=== PATIENT | male | born 1945 | race Caucasian/White ===

== ENCOUNTER 2016-11-20 11:03 | Emergency (ER) | payer MEDICAID ==
[~2016-11-20] VITALS: Ht 175.3 cm; Wt 83.0 kg
[2016-11-20 11:16] VITALS: Ht 175.3 cm; Wt 83.0 kg
[2016-11-20] MEDS ORDERED: ACETAMINOPHEN 325 MG TAB PO ONE (14:00)
--- NOTE | 2016-11-20 14:19 | RADRPT ---
PROCEDURE: XR Chest. CLINICAL INDICATION: Cough. TECHNIQUE: Single frontal view. COMPARISON: None. FINDINGS: The lungs are clear. The heart size is normal. There is calcification in the aorta consistent with atherosclerosis. There is no pleural effusion. There is bilateral apical pleural thickening. There is no pneumothorax. IMPRESSION: 1. Atherosclerosis. 2. Clear lungs. 3. Bilateral apical pleural thickening. RPTAT: QQ .Ashkan Martinez MD, MD Date Time Electronically viewed and signed by .Ashkan Martinez MD, on 11/20/2016 14:19 .R/
[2016-11-20] MEDS ORDERED: OSLT75C PO (14:35)
[2016-11-20] MEDS ORDERED: ACET500C5 PO (14:35)
[2016-11-20] MEDS ORDERED: UDROBDM PO (14:35)
--- NOTE | 2016-11-20 14:37 | ERD ---
ER Documentation Chief Complaint Date/Time DATE: 11/20/16 TIME: 14:36 Chief Complaint COUGH,FEVER,SORE THROAT "MY LUNGS HURT" HPI 71-year-old male complains of cough fever and sore throat for last 3 days. He also has pleuritic pain in the anterior chest but not at rest. He denies significant sputum. Denies vomiting, abdominal pain. Patient is concerned because he has a history of pneumonia. ROS All systems reviewed and are negative except as per history of present illness. Medications Home Meds Active Scripts Oseltamivir Phosphate* (Tamiflu*) 75 Mg Capsule, 75 MG PO BID for 5 Days, CAP Prov:CANDIS MOY MD 11/20/16 Guaifenesin-Dextromethorphan* (Robitussin* DM) 100MG/10MG/5ML Syrup, 5 ML PO Q4H Y for QID for 4 Days, ML 4 ounces Prov:CANDIS MOY MD 11/20/16 Acetaminophen* (Tylophen*) 500 Mg Capsule, 1 CAP PO Q6H Y for PAIN AND OR ELEVATED TEMP, #15 CAP Prov:CANDIS MOY MD 11/20/16 Allergies Allergies: Coded Allergies: No Known Allergy (Unverified , 11/20/16) PMhx/Soc Medical and Surgical Hx: pt denies Medical Hx History of Surgery: Yes (HERNIA REPAIR) Hx Alcohol Use: No Hx Substance Use: No Hx Tobacco Use: No Smoking Status: Never smoker Physical Exam Vitals Vital Signs Date Time Temp Pulse Resp B/P Pulse Ox O2 Delivery O2 Flow Rate FiO2 11/20/16 11:16 98.5 68 18 164/77 98 Physical Exam Const: [] Alert, [id number] per Head: Atraumatic Eyes: Normal Conjunctiva ENT: Normal External Ears, Nose and Mouth. Neck: Full range of motion..~ No meningismus. Resp: Clear to auscultation bilaterally Cardio: Regular rate and rhythm, no murmurs Abd: Soft, non tender, non distended. Normal bowel sounds Skin: No petechiae or rashes Back: No midline or flank tenderness Ext: No cyanosis, or edema Neur: Awake and alert Psych: Normal Mood and Affect Results 24 hrs Current Medications Medications (Trade) Dose Ordered Sig/Roland Route PRN Reason Start Time Stop Time Status Last Admin Dose Admin Acetaminophen (Tylenol Tab) 650 mg ONCE ONCE PO 11/20/16 14:00 11/20/16 14:01 DC 11/20/16 13:51 Procedures/MDM Chest X-ray 1V Interpreted by me: Soft Tissue: No acute abnormalities Bones: No acute abnormalities Mediastinum/Cardiac Silhouette/Lungs: [No acute abnormalities]. Impression- no acute findings on 1 view chest x-ray Patient presents with URI symptoms with no evidence of pneumonia, hypoxemia, respiratory distress. He will be treated empirically for influenza with Tamiflu , Robitussin and Tylenol. The patient was stable with no new complaints during the ER course. Clinically, there is no current evidence to suggest meningitis, sepsis, acute abdomen, pneumonia, acute coronary syndrome, pulmonary embolism, or any other emergent condition appearing to require further evaluation or hospitalization. The patient should certainly return for any new or worsening symptoms per the aftercare instructions. They should otherwise follow-up with her primary care doctor for reevaluation this week. Departure Diagnosis: Primary Impression: Upper respiratory infection URI type: unspecified URI Qualified Code: J06.9 - Upper respiratory tract infection, unspecified type Condition: Stable Patient Instructions: Uri, Viral, No Abx (Adult) Additional Instructions: X-ray read as no acute findings. We will treat for influenza. Recheck for new or worsening symptoms with primary care doctor. CANDIS MOY MD Nov 20, 2016 14:37
[2016-11-20 15:30] VITALS: BP 150/70; PULSE 89; RESP 20; TEMP 98.7
== END 2016-11-20 15:40 | disposition home or self-care (01) ==
LOC: FTE 11:03
DX: J06.9 Acute upper respiratory infection, unspecified (principal)
CPT/HCPCS: 71010; Z7502; Z7610

== ENCOUNTER 2017-01-22 12:06 | Emergency (ER) | payer MEDICAID, OTHER ==
[~2017-01-22] VITALS: Wt 80.0 kg
[~2017-01-22 12:06] MED LIST: ACET500C5 PO; OSLT75C PO; UDROBDM PO
[2017-01-22] MEDS ORDERED: ALBUTEROL 0.083% (NEB) 2.5 MG/3 ML AMP NEB STA (13:27)
--- NOTE | 2017-01-22 15:13 | RADRPT ---
PROCEDURE: XR Chest. CLINICAL INDICATION: Chest pain/shortness of breath TECHNIQUE: Chest PA COMPARISON: 11/20/2016 FINDINGS: The mediastinal structures are unremarkable. There is calcification of the thoracic aorta (consiste nt with atherosclerosis). The heart is normal in size and configuration. The pulmonary vascularity is normal. There are normal lung volumes. There is mild bibasilar subsegmental atelectasis. No c onsolidation is identified. The pleural spaces are unremarkable. The osseous structures are unrema rkable. IMPRESSION: Calcification of the thoracic aorta (consistent with atherosclerosis). Mild bibasilar subsegmental atelectasis No consolidation identified RPTAT: HGDB .Braden Anderson MD, MD Date Time Electronically viewed and signed by .Braden Anderson MD, MD on 01/22/2017 15:12 .B/
[2017-01-22] MEDS ORDERED: ACETAMINOPHEN 325 MG TAB PO STA (15:18)
[2017-01-22] MEDS ORDERED: AZIT250T94 PO (15:38)
[2017-01-22] MEDS ORDERED: ALBU8.5H3 INH (15:38)
[2017-01-22] MEDS ORDERED: ACET325T33 PO (15:38)
--- NOTE | 2017-01-22 15:50 | ERD ---
ER Documentation Chief Complaint Date/Time DATE: 01/22/17 TIME: 15:49 Chief Complaint COUGH/CONGESTION/HEADACHE [id number] HPI This is a 71-year-old male presenting to the emergency department with no medical problems stating that he he has cough, congestion, headache and mild shortness of breath for the past 2 weeks. He states that he has no chest pain and no history of asthma. Patient states that he took Tylenol yesterday without any relief. He rates his mild to moderate in severity ROS All systems reviewed and are negative except as per history of present illness. Medications Home Meds Active Scripts Acetaminophen* (Tylenol*) 325 Mg Tablet, 2 TAB PO Q6 Y for PAIN AND OR ELEVATED TEMP, #20 TAB Prov:MARY KAY HAND PA-C 01/22/17 Albuterol Sulfate* (Proair HFA*) 8.5 Gm Hfa.aer.ad, 2 PUFF INH Q4H Y for WHEEZING AND SOB, #1 INHALER Prov:MARY KAY HAND PA-C 01/22/17 Azithromycin* (Zithromax*) 250 Mg Tablet, 250 MG PO .ZPACK DIRECTED, #6 TAB TAKE 500 MG (2 TABS) THE FIRST DAY THEN 250 MG (1 TAB) DAYS 2-5 Prov:MARY KAY HAND PA-C 01/22/17 Oseltamivir Phosphate* (Tamiflu*) 75 Mg Capsule, 75 MG PO BID for 5 Days, CAP Prov:CANDIS MOY MD 11/20/16 Guaifenesin-Dextromethorphan* (Robitussin* DM) 100MG/10MG/5ML Syrup, 5 ML PO Q4H Y for QID for 4 Days, ML 4 ounces Prov:CANDIS MOY MD 11/20/16 Acetaminophen* (Tylophen*) 500 Mg Capsule, 1 CAP PO Q6H Y for PAIN AND OR ELEVATED TEMP, #15 CAP Prov:CANDIS MOY MD 11/20/16 Allergies Allergies: Coded Allergies: No Known Allergy (Unverified , 11/20/16) PMhx/Soc History of Surgery: Yes (HERNIA REPAIR) Hx Alcohol Use: No Hx Substance Use: No Hx Tobacco Use: No Physical Exam Vitals Vital Signs Date Time Temp Pulse Resp B/P Pulse Ox O2 Delivery O2 Flow Rate FiO2 01/22/17 13:53 86 25 95 21 01/22/17 12:16 99.6 86 25 147/81 95 Physical Exam GENERAL: well-developed/well-nourished, in no apparent distress, non-toxic appearing HEAD: NC/AT, no swelling noted in frontal or maxillary areas EARS: bilateral tympanic membrane is intact without erythema or effusion NARES: congested THROAT: oropharynx non-erythematous without exudates, no tonsil enlargement, post nasal drip EYES: Conjunctiva normal NECK: Supple, no lymphadenopathy PULM: Mild coarse breath sounds bilaterally CV: Normal S1S2, RRR, good capillary refill GI: Soft, non-distended, normal bowel sounds, non-tender BACK: No midline tenderness, no masses EXT No clubbing, cyanosis, or edema NEURO: Alert and Orientated SKIN: Intact, normal turgor PSYCH: Normal mood and mentation Results 24 hrs Current Medications Medications (Trade) Dose Ordered Sig/Roland Route PRN Reason Start Time Stop Time Status Last Admin Dose Admin Albuterol (Proventil 0.083% (Neb)) 5 mg ONCE STAT NEB 01/22/17 13:27 01/22/17 13:30 DC 01/22/17 13:52 Acetaminophen (Tylenol Tab) 650 mg ONCE STAT PO 01/22/17 15:18 01/22/17 15:20 DC 01/22/17 15:24 Procedures/MDM This is a 71-year-old male presenting to the emergency room with symptoms most consistent with a bronchitis which likely can be viral versus bacterial therefore patient will be empirically treated with Z-Aydin as an outpatient. There is no evidence of respiratory distress, pneumonia or pleural effusion. RT was consulted, patient was given a breathing treatment and he states that he significant feels better. Patient was given Tylenol for pain. Chest x-ray done in the ED and radiologist stated Calcification of the thoracic aorta (consistent with atherosclerosis). Mild bibasilar subsegmental atelectasis No consolidation identified Patient is hematuria stable for discharge for home with prescriptions for Z-Aydin , Tylenol and pro-air. Discussed for him to follow-up with his primary care physician tomorrow for further evaluation management. Discussed return to the ER for any worsening sinus symptoms. He understands and agrees with plan Departure Diagnosis: Primary Impression: URI (upper respiratory infection) Condition: Stable Patient Instructions: Preventing Common Respiratory Infections, Bronchitis With Wheezing (Adult) Additional Instructions: Visite a nathan mdsergo [facility] para un EXAMEN.Regrese a estas instalaciones si no se mejora steph esperbamos o steph le dijimos. Ola toda la medicina [place] y steph se le indic. Regrese a estas instalaciones si no se mejora steph esperbamos o steph le dijimos. MARY KAY HAND PA-C January 22, 2017 15:50
== END 2017-01-22 15:46 | disposition home or self-care (01) ==
LOC: FTE 12:06
DX: J06.9 Acute upper respiratory infection, unspecified (principal)
CPT/HCPCS: 71010; 94664; Z7502; Z7610

== ENCOUNTER 2017-05-01 11:20 | Emergency (ER) | payer OTHER ==
[~2017-05-01] VITALS: Ht 175.3 cm; Wt 81.5 kg
[~2017-05-01 11:20] MED LIST changes: +ACET325T33 PO; +ALBU8.5H3 INH; +AZIT250T94 PO
[2017-05-01 11:25] VITALS: Ht 175.3 cm; Wt 81.5 kg
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
[2017-05-01] MEDS ORDERED: IBUPROFEN 800 MG TAB PO ONE (12:30)
--- NOTE | 2017-05-01 12:59 | RADRPT ---
PROCEDURE: XR Chest 1 View. CLINICAL INDICATION: Chest pain and trauma. TECHNIQUE: AP view of the chest was obtained. COMPARISON: January 22, 2017 FINDINGS: The heart size is within normal limits. Calcified atherosclerosis is noted in the aorta. The lungs are hyperexpanded. Chronic mild interstitial prominence is seen in both lungs. Blunting of the rig ht costophrenic angle is observed. No consolidations are identified. No pneumothorax is seen. Osse ous structures are intact. IMPRESSION: Calcified atherosclerosis in the aorta. No visualized traumatic injury. Hyperexpanded lungs with chronic mild interstitial prominence in both lungs. Findings could reflect COPD. Blunting of the right costophrenic angle that may reflect small pleural effusion. If there is high clinical suspicion for traumatic injury, further evaluation with CT should be consi dered. RPTAT: AA .Lai Borrero MD, Date Time Electronically viewed and signed by .Lai Borrero MD, MD on 05/01/2017 12:59 .P/
--- NOTE | 2017-05-01 13:48 | RADRPT ---
PROCEDURE: XR Ribs. CLINICAL INDICATION: Pain TECHNIQUE: Multiple oblique views of the right ribs were obtained. The images were reviewed on a PACS workstation. COMPARISON: Chest x-ray from the same day FINDINGS: There is no evidence for a rib fracture. The underlying lung parenchyma is intact without evidence f or pneumothorax. There is a trace right pleural effusion. IMPRESSION: No acute rib fracture identified. Trace right pleural effusion. RPTAT: EE .Marge Looney MD, Date Time Electronically viewed and signed by .Marge Looney MD, on 05/01/2017 13:47 .F/
--- NOTE | 2017-05-01 14:44 | RADRPT ---
PROCEDURE: CT Chest without contrast. CLINICAL INDICATION: Trauma, pain TECHNIQUE: CT of the chest was performed on a multi-detector scanner without IV contrast. Coronal and sagittal images were reformatted from the axial data set. One or more of the following dose re duction techniques were used: automated exposure control, adjustment of the mA and/or kV according t o patient size, use of iterative reconstruction technique. CTDI = 11.62 mGy. DLP = 454.39 mGy-cm. COMPARISON: Chest x-ray, 05/01/2017 FINDINGS: There is trace low density right pleural fluid. Mild bibasilar atelectasis is noted. No acute infi ltrate, pulmonary edema or pneumothorax is identified. The central tracheobronchial tree is clear. No pulmonary nodule or mass is identified. The heart size is normal without significant pericardial fluid. Coronary arterial and aortic athero sclerotic calcifications are present. There is no thoracic aortic aneurysm. No mediastinal, hilar, axillary or supraclavicular lymphadenopathy is identified. Liver and kidneys demonstrate benign cysts. Visualized portions of the upper abdomen are otherwise grossly unremarkable. The surrounding osseous structures are remarkable for degenerative enthesopat hy of the spine. No acute fracture or dislocation is identified. No focal osseous lesion is seen. IMPRESSION: 1. Nonspecific trace low density right pleural fluid. Mild bibasilar atelectasis. 2. Coronary arterial and aortic atherosclerotic calcifications. 3. No mass, lymphadenopathy, or focal acute infiltrate. 4. No evidence of acute traumatic injury. RPTAT: HDWR .Sharad Khanna MD, Date Time Electronically viewed and signed by .Sharad Khanna MD, MD on 05/01/2017 14:43 .R/
[2017-05-01] MEDS ORDERED: HYDR-906 PO (14:55)
[2017-05-01] MEDS ORDERED: NAPR-260 PO (14:55)
[2017-05-01 15:07] VITALS: BP 148/67; PULSE 73; RESP 18
== END 2017-05-01 15:08 | disposition home or self-care (01) ==
LOC: FTE 11:20
DX: S20.211A Contusion of right front wall of thorax, initial encounter (principal); W01.0XXA Fall on same level from slipping, tripping and stumbling without subsequent striking against object, initial encounter; Y92.410 Unspecified street and highway as the place of occurrence of the external cause
CPT/HCPCS: 71010; 71100; 71250; Z7502; Z7610

== ENCOUNTER 2018-12-28 06:22 | Emergency (ER) | payer SELFPAY ==
[~2018-12-28] VITALS: Ht 185.4 cm; Wt 80.1 kg
[~2018-12-28 06:22] MED LIST changes: -ALBU8.5H3 INH; +ALBU8.5H8 INH; +AZIT250T PO; -AZIT250T94 PO; +GUAI5SYR2 PO; +HYDR-4011 PO; +NAPR-985 PO; +OSEL75CA23 PO; -OSLT75C PO; -UDROBDM PO
[2018-12-28 06:27] VITALS: Ht 185.4 cm; Wt 80.1 kg
[2018-12-28] MEDS ORDERED: ONDANSETRON 4 MG INJ IV STA (07:01)
[2018-12-28] MEDS ORDERED: SOD CHLORIDE 0.9% 500 ML IV STA (07:01)
[2018-12-28] MEDS ORDERED: morphine 4 MG/ML VIAL IV STA (07:01)
--- NOTE | 2018-12-28 08:07 | ERD ---
ER Documentation Chief Complaint Chief Complaint pt has ap pressure and flank pain x 1 day 01/07 HPI 73-year-old man complains of suprapubic abdominal pain, urine retention, right flank pain beginning last night after eating salad. He suspects he has food poisoning and states he has had retention many years ago. He has had some na usea and diarrhea a few times since last night but denies vomiting, no blood per rectum or melena, no hematuria, no complaints of chest pain or shortness of breath. Patient has history of hernia surgery. He has had no fevers or chills, no complaints of paresis or paresthesias ROS All systems reviewed and are negative except as per history of present illness. Medications Home Meds Active Scripts Ibuprofen* (Motrin*) 600 Mg Tab, 600 MG PO Q8 PRN for PAIN AND/OR INFLAMMATION, #30 TAB Prov:PATRICIA FARIAS MD 12/28/18 Polyethylene Glycol* (Miralax*) 17 Gm Powd.pack, 17 GM PO DAILY, #7 Prov:PATRICIA FARIAS MD 12/28/18 Naproxen* (Naprosyn*) 500 Mg Tablet, 500 MG PO BID PRN for PAIN AND/OR INFLAM MATION, #30 TAB Prov:RAE SPENCER PA-C 05/01/17 Hydrocodone/Acetaminophen (Vista 5-325 Tablet) 1 Each Tablet, 1 TAB PO Q6H PRN for PAIN, #7 TAB Prov:RAE SPENCER PA-C 05/01/17 Acetaminophen* (Tylenol*) 325 Mg Tablet, 2 TAB PO Q6 PRN for PAIN AND OR ELEVATED TEMP, #20 TAB Prov:MARY KAY HAND PA-C 01/22/17 Albuterol Sulfate* (Proair HFA*) 8.5 Gm Hfa.aer.ad, 2 PUFF INH Q4H PRN for WHEEZING AND SOB, #1 INHALER Prov:MARY KAY HAND PA-C 01/22/17 Azithromycin* (Zithromax*) 250 Mg Tablet, 250 MG PO .PiercePACK DIRECTED, #6 TAB TAKE 500 MG (2 TABS) THE FIRST DAY THEN 250 MG (1 TAB) DAYS 2-5 Prov:MARY KAY HAND PA-C 01/22/17 Oseltamivir Phosphate* (Tamiflu*) 75 Mg Capsule, 75 MG PO BID for 5 Days, CAP Prov:CANDIS MOY MD 11/20/16 Guaifenesin-Dextromethorphan* (Robitussin* DM) 100MG/10MG/5ML Syrup, 5 ML PO Q4H PRN for QID for 4 Days, ML 4 ounces Prov:CANDIS MOY MD 11/20/16 Acetaminophen* (Tylophen*) 500 Mg Capsule, 1 CAP PO Q6H PRN for PAIN AND OR ELEVATED TEMP, #15 CAP Prov:CANDIS MOY MD 11/20/16 Allergies Allergies: Coded Allergies: No Known Allergy (Unverified , 12/28/18) PMhx/Soc Hernia surgery, hypertension History of Surgery: Yes (HERNIA REPAIR) Hx Alcohol Use: No Hx Substance Use: No Hx Tobacco Use: No Smoking Status: Former smoker FmHx Family History: No diabetes Physical Exam Vitals Vital Signs Date Temp Pulse Resp B/P (MAP) Pulse Ox O2 O2 Flow FiO2 Time Delivery Rate 12/28/18 62 17 129/65 99 Room Air 09:17 (86) 12/28/18 99.1 73 18 192/88 96 06:27 (122) Physical Exam Const: No acute distress, afebrile Resp: Clear to auscultation bilaterally Cardio: Regular rate and rhythm, no murmurs Abd: Soft, non tender, mild suprapubic tenderness and distention, no rigidity or masses, no guarding Skin: No petechiae or rashes Back: No midline or flank tenderness Ext: No cyanosis, or edema Neur: Awake and alert x3, no focal deficits or facial asymmetry, moving all extremities Psych: Normal Mood and Affect Result Diagram: 12/28/18 0725 12/28/18 0725 Results 24 hrs Laboratory Tests Test 12/28/18 07:13 12/28/18 07:25 Urine Color STRAW Urine Clarity CLEAR Urine pH 6.0 Urine Specific [place] 1.006 Urine Ketones NEGATIVE mg/dL Urine Nitrite NEGATIVE mg/dL Urine Bilirubin NEGATIVE mg/dL Urine Urobilinogen NEGATIVE mg/dL Urine Leukocyte Esterase NEGATIVE Bruno/ul Urine Microscopic RBC 2 /HPF Urine Microscopic WBC 0 /HPF Urine Hemoglobin 1+ mg/dL Urine Glucose NEGATIVE mg/dL Urine Total Protein NEGATIVE mg/dl White Blood Count 11.3 10^3/ul Red Blood Count 5.36 10^6/ul Hemoglobin 16.3 g/dl Hematocrit 48.9 % Mean Corpuscular Volume 91.2 fl Mean Corpuscular Hemoglobin 30.4 pg Mean Corpuscular Hemoglobin Concent 33.3 g/dl Red Cell Distribution Width 14.1 % Platelet Count 177 10^3/UL Mean Platelet Volume 10.3 fl Immature Granulocytes % 0.600 % Neutrophils % 83.9 % Lymphocytes % 6.2 % Monocytes % 9.0 % Eosinophils % 0.1 % Basophils % 0.2 % Nucleated Red Blood Cells % 0.0 /100WBC Immature Granulocytes # 0.070 10^3/ul Neutrophils # 9.5 10^3/ul Lymphocytes # 0.7 10^3/ul Monocytes # 1.0 10^3/ul Eosinophils # 0.0 10^3/ul Basophils # 0.0 10^3/ul Nucleated Red Blood Cells # 0.0 10^3/ul Prothrombin Time 12.1 Sec Prothrombin Time Ratio 0.9 INR International Normalized Ratio 0.89 Activated Partial Thromboplast Time 30.8 Sec Sodium Level 142 mmol/L Potassium Level 4.4 mmol/L Chloride Level 109 mmol/L Carbon Dioxide Level 25 mmol/L Anion Gap 8 Blood Urea Nitrogen 19 mg/dl Creatinine 1.10 mg/dl Est Glomerular Filtrat Rate mL/min mL/min Glucose Level 117 mg/dl Calcium Level 9.6 mg/dl Total Bilirubin 0.6 mg/dl Direct Bilirubin 0.00 mg/dl Indirect Bilirubin 0.6 mg/dl Aspartate Amino Transf (AST/SGOT) 20 IU/L Alanine Aminotransferase (ALT/SGPT) 25 IU/L Alkaline Phosphatase 80 IU/L Total Protein 7.0 g/dl Albumin 4.0 g/dl Globulin 3.00 g/dl Albumin/Globulin Ratio 1.33 Lipase 112 U/L Current Medications Medications Dose Sig/Roland Start Time Status Last (Trade) Ordered Route PRN Stop Time Admin Dose Reason Admin Sodium 500 ml @ Q1H STAT 12/28/18 DC 12/28/18 Chloride 500 mls/hr IV 07:01 07:31 12/28/18 08:00 Morphine 4 mg ONCE STAT 12/28/18 DC 12/28/18 Sulfate IV 07:01 07:30 (morphine) 12/28/18 07:02 Ondansetron 4 mg ONCE STAT 12/28/18 DC 12/28/18 HCl (Zofran IV 07: 07:30 Inj) 12/28/18 07:02 Procedures/[facility] IV line was established patient was placed on nuclear monitoring technician rhythm strip revealed a sinus rhythm at about 80 bpm with upright P and T waves. Patient was afebrile A Fields catheter was placed and patient suprapubic distention and pain resolved completely, about 900 cc clear urine output was obtained. I administered 500 cc normal saline IV, morphine 4 mg IV and Zofran 4 mg IV. CBC and electrolytes are normal, liver function tests are normal, urinalysis negative for infection CT scan of the abdomen and pelvis was performed, IMPRESSION: 1. Colonic diverticulosis most prevalent in the descending and especially sigmoid colon without CT evidence of diverticulitis. 2. No calcified urinary calculi or obstructive uropathy. Large pedunculated 5 cm superior lateral left renal cyst. 2 mm cortical inferior medial left renal nephrolith. 3. Continuous multiple cysts of the liver overall dimension 4.5 cm. 4. 1 cm pancreatic tail cyst consistent with a pseudocyst. No other pancreatic lesions. 5. Severely enlarged prostate gland. Correlation with PSA levels may be helpful. 6. Tiny fat containing umbilical hernia without herniated hour strangulation. Differential diagnoses considered, included but not limited to acute coronary syndrome, pulmonary embolism, aortic dissection, abdominal aortic aneurysm, sepsis, stroke, meningitis, encephalitis, pneumonia, appendicitis, ch olecystitis, bowel obstruction, pyelonephritis, nephrolithiasis, cystitis, as well as metabolic, hematologic, and electrolyte abnormalities. As well as abscess, cellulitis, fractures, and dislocations. Patient feels much better at this time, and vital signs are normal, symptoms have improved. I did give strict instructions to return to the ED if symptoms continue or worsen, patient will otherwise follow-up with primary care physician. Patient understood instructions and agreed to plan. Disclaimer: Inadvertent spelling and grammatical errors are likely due to EHR/dictation software use and do not reflect on the overall quality of patient care. Also, please note that the electronic time recorded on this note does not necessarily reflect the actual time of the patient encounter. Departure Diagnosis: Primary Impression: Urinary retention Additional Impression: Abdominal pain Abdominal location: lower abdomen, unspecified Qualified Codes: R10.30 - Lower abdominal pain, unspecified Condition: Good PATRICIA FARIAS MD Dec 28, 2018 08:07
[2018-12-28 09:17] VITALS: BP 129/65; PULSE 62; RESP 17
[2018-12-28] MEDS ORDERED: IBUP-1542 PO (09:27)
[2018-12-28] MEDS ORDERED: POLY17PO6 PO (09:27)
[2018-12-29] MEDS ORDERED: POLY17PO6 PO (11:28)
[2018-12-29] MEDS ORDERED: GLYC1SUP92 PR (11:28)
[2018-12-29] MEDS ORDERED: DOCU-144 PO (11:28)
[2018-12-29] MEDS ORDERED: TAMS-14 PO (11:31)
== END 2018-12-28 10:23 | disposition home or self-care (01) ==
LOC: E/R 06:22
DX: R33.9 Retention of urine, unspecified (principal); R10.30 Lower abdominal pain, unspecified; I10 Essential (primary) hypertension; Z87.891 Personal history of nicotine dependence
CPT/HCPCS: 36415; 51702; 74176; 80053; 81001; 83690; 85025; 85610; 85730; 87086; 96374; 96375; 99285; J2270; J2405; J7040

== ENCOUNTER 2018-12-29 09:18 | Emergency (ER) | payer SELFPAY ==
[~2018-12-29] VITALS: Ht 182.9 cm; Wt 79.4 kg
[~2018-12-29 09:18] MED LIST changes: +IBUP-1542 PO; +POLY17PO6 PO
[2018-12-29 09:20] VITALS: RESP 18; Ht 182.9 cm; Wt 79.4 kg
[2018-12-29 11:27] VITALS: BP 136/80; PULSE 63
[2018-12-29] MEDS ORDERED: POLY17PO6 PO (11:28)
[2018-12-29] MEDS ORDERED: GLYC1SUP92 PR (11:28)
[2018-12-29] MEDS ORDERED: DOCU-144 PO (11:28)
[2018-12-29] MEDS ORDERED: IBUPROFEN 800 MG TAB PO ONE (11:30)
[2018-12-29] MEDS ORDERED: TAMS-14 PO (11:31)
--- NOTE | 2018-12-29 14:15 | ERD ---
ER Documentation Chief Complaint Chief Complaint urine retention x yesterday HPI 73-year-old male presenting with urinary retention. Patient states that he has been unable to urinate since yesterday. He denies any fevers. Denies abdominal pain. Has a history of enlarged prostate. Denies other medical problems. NKDA. Surgical history denies. Social history denies ROS All systems reviewed and are negative except as per history of present illness. Medications Home Meds Active Scripts Tamsulosin Hcl* (Flomax*) 0.4 Mg Cap.er.24h, 0.4 MG PO QPM, #30 CAP Prov:EMMANUEL HER PA-C 12/29/18 Polyethylene Glycol* (Miralax*) 17 Gm Powd.pack, 17 GM PO DAILY, #7 Prov:EMMANUEL HER PA-C 12/29/18 Glycerin* (Glycerin (Adult)*) 1 Each Supp.rect, [address] DAILY PRN for CONSTIPATION, #30 SUPP.RECT Prov:EMMANUEL HER PA-C 12/29/18 Docusate Sodium* (Colace*) 100 Mg Capsule, 100 MG PO TID, #30 CAP Prov:EMMANUEL HER PA-C 12/29/18 Ibuprofen* (Motrin*) 600 Mg Tab, 600 MG PO Q8 PRN for PAIN AND/OR INFLAMMATION, #30 TAB Prov:PATRICIA FARIAS MD 12/28/18 Polyethylene Glycol* (Miralax*) 17 Gm Powd.pack, 17 GM PO DAILY, #7 Prov:PATRICIA FARIAS MD 12/28/18 Naproxen* (Naprosyn*) 500 Mg Tablet, 500 MG PO BID PRN for PAIN AND/OR INFLAMMATION, #30 TAB Prov:RAE SPENCER PA-C 05/01/17 Hydrocodone/Acetaminophen ([place] 5-325 Tablet) 1 Each Tablet, 1 TAB PO Q6H PRN for PAIN, #7 TAB Prov:RAE SPENCER PA-C 05/01/17 Acetaminophen* (Tylenol*) 325 Mg Tablet, 2 TAB PO Q6 PRN for PAIN AND OR ELEVATED TEMP, #20 TAB Prov:MARY KAY HAND PA-C 01/22/17 Albuterol Sulfate* (Proair HFA*) 8.5 Gm Hfa.aer.ad, 2 PUFF INH Q4H PRN for WHEEZING AND SOB, #1 INHALER Prov:MARY KAY HAND PA-C 01/22/17 Azithromycin* (Zithromax*) 250 Mg Tablet, 250 MG PO .ZPACK DIRECTED, #6 TAB TAKE 500 MG (2 TABS) THE FIRST DAY THEN 250 MG (1 TAB) DAYS 2-5 Prov:MARY KAY HAND PA-C 01/22/17 Oseltamivir Phosphate* (Tamiflu*) 75 Mg Capsule, 75 MG PO BID for 5 Days, CAP Prov:CANDIS MOY MD 11/20/16 Guaifenesin-Dextromethorphan* (Robitussin* DM) 100MG/10MG/5ML Syrup, 5 ML PO Q4H PRN for QID for 4 Days, ML 4 ounces Prov:CANDIS MOY MD 11/20/16 Acetaminophen* (Tylophen*) 500 Mg Capsule, 1 CAP PO Q6H PRN for PAIN AND OR ELEVATED TEMP, #15 CAP Prov:CANDIS MOY MD 11/20/16 Allergies Allergies: Coded Allergies: No Known Allergy (Unverified , 12/28/18) PMhx/Soc History of Surgery: Yes (HERNIA REPAIR) Anesthesia Reaction: No Hx Neurological Disorder: No Hx Respiratory Disorders: No Hx Cardiac Disorders: No Hx Psychiatric Problems: No Hx Miscellaneous Medical Probl: Yes (BPH) Hx Alcohol Use: No Hx Substance Use: No Hx Tobacco Use: No Smoking Status: Never smoker FmHx Family History: No diabetes, No coronary disease, No other Physical Exam Vitals Vital Signs Date Temp Pulse Resp B/P (MAP) Pulse Ox O2 O2 Flow FiO2 Time Delivery Rate 12/29/18 63 136/80 11:27 (98) 12/29/18 99.1 09:43 12/29/18 97.8 95 18 167/93 97 09:20 (117) Physical Exam GENERAL: The patient is well-appearing, well-nourished, in no acute distress HEENT: Atraumatic. Conjunctivae are pink. Pupils equal, round, and reactive to light. There is no scleral icterus. Tympanic membranes clear bilaterally. Oropharynx clear. CHEST: Clear to auscultation bilaterally. There are no rales, wheezes or rhonchi. HEART: Regular rate and rhythm. No murmurs, clicks, rubs or gallops. No S3 or S4. ABDOMEN: Mild distention. Normal active bowel sounds. No tenderness to palpation. BACK: No midline or flank tenderness. Results 24 hrs Laboratory Tests Test 12/29/18 11:10 Bedside Urine pH (LAB) 5.5 Bedside Urine Protein (LAB) Negative Bedside Urine Glucose (UA) Negative Bedside Urine Ketones (LAB) Negative Bedside Urine Blood 2+ Bedside Urine Nitrite (LAB) Negative Bedside Urine Leukocyte Esterase (L Negative Current Medications Medications Dose Sig/Roland Start Time Status Last (Trade) Ordered Route PRN Stop Time Admin Dose Reason Admin Ibuprofen 800 mg ONCE ONCE 12/29/18 DC 12/29/18 (Motrin) PO 11:30 12/29/18 11:26 11:31 Procedures/MDM ER course: Fields catheter placed in ED. Urinalysis negative. Urine sent for culture. MDM: 73-year-old male presenting with urinary retention. Patient was able to alleviate urine in the ER. Patient was sent home with urinary bag and recommended to follow-up with urologist. Patient is discharged with strict ER precautions. All questions answered discharge Departure Diagnosis: Primary Impression: Retention of urine Condition: Stable Patient Instructions: Urinary Retention, Male Referrals: RINA PERES MD (PCP) NARESH NARVAEZ MD Additional Instructions: FOLLOW UP WITH YOUR PRIMARY CARE PHYSICIAN TOMORROW.Return to this facility if you are not improving as expected. EMMANUEL HER PA-C December 29, 2018 14:15
== END 2018-12-29 11:35 | disposition home or self-care (01) ==
LOC: FTE 09:18
DX: R33.9 Retention of urine, unspecified (principal)
CPT/HCPCS: 81003; 87086

== ENCOUNTER 2019-01-31 10:21 | Emergency (ER) | payer MEDICAID ==
[~2019-01-31] VITALS: Wt 65.0 kg
[~2019-01-31 10:21] MED LIST changes: +DOCU-144 PO; +GLYC1SUP92 PR; +TAMS-14 PO
[2019-01-31] MEDS ORDERED: FINA1TAB16 PO (10:34)
[2019-01-31] MEDS ORDERED: CEPH-443 PO (10:34)
[2019-01-31] MEDS ORDERED: SULF1TAB31 PO (10:34)
[2019-01-31] MEDS ORDERED: TAMS-14 PO (10:34)
[2019-01-31] MEDS ORDERED: CEPHALEXIN 500 MG CAP PO ONE (11:00)
[2019-01-31] MEDS ORDERED: TAMSULOSIN (SR) 0.4 MG CAP PO ONE (11:00)
[2019-01-31] MEDS ORDERED: TRIMETHOPRIM/SULFAMETHOX (DS) TAB PO ONE (11:00)
--- NOTE | 2019-01-31 13:22 | ERD ---
ER Documentation Chief Complaint Chief Complaint painful urinary catheter in for the past 6 wks. possible infection per pt HPI Patient is a 73-year-old male with a history of urinary retention who presents for possible Fields catheter infection. The patient said that he has had a Fields catheter in place for the last 6 weeks for urinary retention. He says "I think it is infected and it smells bad". It has been leaking as well. He has no fe vers. He says that he needs to be back on finasteride and Flomax which he has not been taking. He does not currently have a primary doctor or urologist. ROS All systems reviewed and are negative except as per history of present illness. Medications Home Meds Active Scripts Finasteride* (Finasteride*) 1 Mg Tablet, 1 MG PO HS, #30 TAB Prov:DANIELA MONTERO MD 01/31/19 Tamsulosin Hcl* (Flomax*) 0.4 Mg Cap.er.24h, 0.4 MG PO HS, #30 CAP Prov:DANIELA MONTERO MD 01/31/19 Cephalexin* (Keflex*) 500 Mg Capsule, 500 MG PO QID for 7 Days, CAP Prov:DANIELA MONTERO MD 01/31/19 Sulfamethoxazole/Trimethoprim* (Bactrim Ds* Tablet) 1 Each Tablet, 1 TAB PO BID, #14 TAB Prov:DANIELA MONTERO MD 01/31/19 Tamsulosin Hcl* (Flomax*) 0.4 Mg Cap.er.24h, 0.4 MG PO QPM, #30 CAP Prov:EMMANUEL HER PA-C 12/29/18 Polyethylene Glycol* (Miralax*) 17 Gm Powd.pack, 17 GM PO DAILY, #7 Prov:EMMANUEL HER PA-C 12/29/18 Glycerin* (Glycerin (Adult)*) 1 Each Supp.rect, 1 EACH [place] DAILY PRN for CONSTIPATION, #30 SUPP.RECT Prov:EMMANUEL HER PA-C 12/29/18 Docusate Sodium* (Colace*) 100 Mg Capsule, 100 MG PO TID, #30 CAP Prov:EMMANUEL HER PA-C 12/29/18 Ibuprofen* (Motrin*) 600 Mg Tab, 600 MG PO Q8 PRN for PAIN AND/OR INFLAMMATION, #30 TAB Prov:PATRICIA FARIAS MD 12/28/18 Polyethylene Glycol* (Miralax*) 17 Gm Powd.pack, 17 GM PO DAILY, #7 Prov:PATRICIA FARIAS MD 12/28/18 Naproxen* (Naprosyn*) 500 Mg Tablet, 500 MG PO BID PRN for PAIN AND/OR INFLAMMATION, #30 TAB Prov:RAE SPENCER PA-C 05/01/17 Hydrocodone/Acetaminophen ([place] 5-325 Tablet) 1 Each Tablet, 1 TAB PO Q6H PRN for PAIN, #7 TAB Prov:RAE SPENCER PA-C 05/01/17 Acetaminophen* (Tylenol*) 325 Mg Tablet, 2 TAB PO Q6 PRN for PAIN AND OR ELEVATED TEMP, #20 TAB Prov:MARY KAY HAND PA-C 01/22/17 Albuterol Sulfate* (Proair HFA*) 8.5 Gm Hfa.aer.ad, 2 PUFF INH Q4H PRN for WHEEZING AND SOB, #1 INHALER Prov:MARY KAY AHND PA-C 01/22/17 Azithromycin* (Zithromax*) 250 Mg Tablet, 250 MG PO .PiercePACK DIRECTED, #6 TAB TAKE 500 MG (2 TABS) THE FIRST DAY THEN 250 MG (1 TAB) DAYS 2-5 Prov:MARY KAY HAND PA-C 01/22/17 Oseltamivir Phosphate* (Tamiflu*) 75 Mg Capsule, 75 MG PO BID for 5 Days, CAP Prov:CANDIS MOY MD 11/20/16 Guaifenesin-Dextromethorphan* (Robitussin* DM) 100MG/10MG/5ML Syrup, 5 ML PO Q4H PRN for QID for 4 Days, ML 4 ounces Prov:CANDIS MOY MD 11/20/16 Acetaminophen* (Tylophen*) 500 Mg Capsule, 1 CAP PO Q6H PRN for PAIN AND OR ELEVATED TEMP, #15 CAP Prov:CANDIS MOY MD 11/20/16 Allergies Allergies: Coded Allergies: No Known Allergy (Unverified , 12/28/18) PMhx/Soc History of Surgery: Yes (HERNIA REPAIR) Anesthesia Reaction: No Hx Neurological Disorder: No Hx Respiratory Disorders: No Hx Cardiac Disorders: No Hx Psychiatric Problems: No Hx Miscellaneous Medical Probl: Yes (BPH) Hx Alcohol Use: No Hx Substance Use: No Hx Tobacco Use: No Smoking Status: Unknown if ever smoked FmHx Family History: No diabetes Physical Exam Vitals Vital Signs Date Temp Pulse Resp B/P (MAP) Pulse Ox O2 O2 Flow FiO2 Time Delivery Rate 01/31/19 97.2 79 18 160/78 98 10:22 (105) Physical Exam Const: No acute distress Head: Atraumatic Eyes: Normal Conjunctiva ENT: Normal External Ears, Nose and Mouth. Neck: Full range of motion. No meningismus. Resp: Clear to auscultation bilaterally Cardio: Regular rate and rhythm, no murmurs Abd: Soft, non tender, non distended. Normal bowel sounds Skin: Cellulitis to the right inner thigh Back: No midline or flank tenderness Ext: No cyanosis, or edema Neur: Awake and alert : Catheter in place, redness to the right inner thigh where the catheter was taped down overlying consistent with cellulitis and skin breakdown Results 24 hrs Current Medications Medications Dose Sig/Roland Start Time Status Last (Trade) Ordered Route PRN Stop Time Admin Dose Reason Admin 1 tab ONCE ONCE 01/31/19 DC 01/31/19 Trimethoprim/ PO 11:00 01/31/19 11:23 11:01 Sulfamethoxaz ole (Bactrim (Ds)) Cephalexin 500 mg ONCE ONCE 01/31/19 DC 01/31/19 (Keflex) PO 11:00 01/31/19 11:23 11:01 Tamsulosin 0.4 mg ONCE ONCE 01/31/19 DC 01/31/19 HCl PO 11:00 01/31/19 11:23 (Flomax) 11:01 Procedures/MDM Patient is a 73-year-old male who presents with acute cystitis and cellulitis. The patient has an indwelling Fields catheter over the past 6 weeks. This will be removed. The patient will be treated with Bactrim and Keflex to treat both urinary tract infection and cellulitis of the right inner thigh. I do not javad geovanna he requires further work-up or admission to the hospital at this time. I doubt Fernando's gangrene or sepsis. The patient will be discharged but will need to follow-up closely with a primary doctor and urologist. Dr. Narvaez's information was given. He can return for any worsening symptoms. He was given prescriptions for Flomax and finasteride as well to prevent urinary retention in the future. Departure Diagnosis: Primary Impression: Cellulitis Site of cellulitis: extremity Site of cellulitis of extremity: lower extremity Laterality: right Qualified Codes: L03.115 - Cellulitis of right lower limb Additional Impression: Genitourinary symptoms Condition: Fair Patient Instructions: Understanding Urinary Tract Infections (UTIs), Cellulitis Referrals: NARESH NARVAEZ MD Additional Instructions: Specialist:Usted tiene emile condicin mdica que requiere que katie a un es pecialista dentro de los prximos 1-2 nicholas.POR FAVOR,CON WEINSTEIN SEGUIMIENTO DE PRIMARIA PHSICIAN refferal. SI USTED NO TIENE UN MDICO GENERAL Y / O USTED NO PUEDE PAGAR malena a un mdico,los siguientes dennison RECURSOS sido suministrado a usted. ES WEINST[employer]IN RESPONSABILIDAD PARA SER VISTOS POR EL ESPECIALISTA: DANIELA MONTERO MD Jan 31, 2019 13:22
== END 2019-01-31 12:15 | disposition home or self-care (01) ==
LOC: E/R 10:21
DX: L03.115 Cellulitis of right lower limb (principal); Y73.2 Prosthetic and other implants, materials and accessory gastroenterology and urology devices associated with adverse incidents
CPT/HCPCS: Z7502; Z7610; 99283

== ENCOUNTER 2019-03-31 11:14 | Emergency (ER) | payer MEDICAID, OTHER ==
[~2019-03-31] VITALS: Wt 89.0 kg
[~2019-03-31 11:14] MED LIST changes: +CEPH-443 PO; +CEPH500C PO; +FINA1TAB16 PO; +SULF1TAB31 PO
[2019-03-31 11:23] VITALS: BP 160/89; PULSE 99; RESP 18
--- NOTE | 2019-03-31 13:10 | ERD ---
ER Documentation Chief Complaint Chief Complaint URINARY RETENTION HPI 74 year old male presents to ED complaining of urinary retention x today. He states he was able to urinate normally yesterday but unable to urinate since this morning. He reports that he feels very full and has the urge to urinate. He denies noticing any blood in his urine. He denies any fevers or chills. He reports a hx of similar event in the past. ROS All systems reviewed and are negative except as per history of present illness. Medications Home Meds Active Scripts Tamsulosin Hcl* (Flomax*) 0.4 Mg Cap.er.24h, 0.4 MG PO BID, #30 CAP Prov:POLLY HUERTA PA-C 03/31/19 Cephalexin* (Cephalexin*) 500 Mg Capsule, 500 MG PO Q12 for 7 Days, #14 CAP Prov:POLLY HUERTA PA-C 03/31/19 Finasteride* (Finasteride*) 1 Mg Tablet, 1 MG PO HS, #30 TAB Prov:DANIELA MONTERO MD 01/31/19 Tamsulosin Hcl* (Flomax*) 0.4 Mg Cap.er.24h, 0.4 MG PO HS, #30 CAP Prov:DANIELA MONTERO MD 01/31/19 Cephalexin* (Keflex*) 500 Mg Capsule, 500 MG PO QID for 7 Days, CAP Prov:DANIELA MONTERO MD 01/31/19 Sulfamethoxazole/Trimethoprim* (Bactrim Ds* Tablet) 1 Each Tablet, 1 TAB PO BID, #14 TAB Prov:DANIELA MONTERO MD 01/31/19 Tamsulosin Hcl* (Flomax*) 0.4 Mg Cap.er.24h, 0.4 MG PO QPM, #30 CAP Prov:EMMANUEL HER PA-C 12/29/18 Polyethylene Glycol* (Miralax*) 17 Gm Powd.pack, 17 GM PO DAILY, #7 Prov:EMMANUEL HER PA-C 12/29/18 Glycerin* (Glycerin (Adult)*) 1 Each Supp.rect, 1 EACH DE DAILY PRN for CONSTIPATION, #30 SUPP.RECT Prov:EMMANUEL HER PA-C 12/29/18 Docusate Sodium* (Colace*) 100 Mg Capsule, 100 MG PO TID, #30 CAP Prov:EMMANUEL HER PA-C 12/29/18 Ibuprofen* (Motrin*) 600 Mg Tab, 600 MG PO Q8 PRN for PAIN AND/OR INFLAMMATION, #30 TAB Prov:PATRICIA FARIAS MD 12/28/18 Polyethylene Glycol* (Miralax*) 17 Gm Powd.pack, 17 GM PO DAILY, #7 Prov:PATRICIA FARIAS MD 12/28/18 Naproxen* (Naprosyn*) 500 Mg Tablet, 500 MG PO BID PRN for PAIN AND/OR INFLAMMATION, #30 TAB Prov:RAE SPENCER PA-C 05/01/17 Hydrocodone/Acetaminophen ([place] 5-325 Tablet) 1 Each Tablet, 1 TAB PO Q6H PRN for PAIN, #7 TAB Prov:RAE SPENCER PA-C 05/01/17 Acetaminophen* (Tylenol*) 325 Mg Tablet, 2 TAB PO Q6 PRN for PAIN AND OR ELEVATED TEMP, #20 TAB Prov:MARY KAY HAND PA-C 01/22/17 Albuterol Sulfate* (Proair HFA*) 8.5 Gm Hfa.aer.ad, 2 PUFF INH Q4H PRN for WHEEZING AND SOB, #1 INHALER Prov:MARY KAY HAND PA-C 01/22/17 Azithromycin* (Zithromax*) 250 Mg Tablet, 250 MG PO .ZPACK DIRECTED, #6 TAB TAKE 500 MG (2 TABS) THE FIRST DAY THEN 250 MG (1 TAB) DAYS 2-5 Prov:MARY KAY HAND PA-C 01/22/17 Oseltamivir Phosphate* (Tamiflu*) 75 Mg Capsule, 75 MG PO BID for 5 Days, CAP Prov:CANDIS MOY MD 11/20/16 Guaifenesin-Dextromethorphan* (Robitussin* DM) 100MG/10MG/5ML Syrup, 5 ML PO Q4H PRN for QID for 4 Days, ML 4 ounces Prov:CANDIS MOY MD 11/20/16 Acetaminophen* (Tylophen*) 500 Mg Capsule, 1 CAP PO Q6H PRN for PAIN AND OR ELEVATED TEMP, #15 CAP Prov:CANDIS MOY MD 11/20/16 Allergies Allergies: Coded Allergies: No Known Allergy (Unverified , 12/28/18) PMhx/Soc History of Surgery: Yes (HERNIA REPAIR) Anesthesia Reaction: No Hx Neurological Disorder: No Hx Respiratory Disorders: No Hx Cardiac Disorders: No Hx Psychiatric Problems: No Hx Miscellaneous Medical Probl: Yes (BPH) Hx Alcohol Use: No Hx Substance Use: No Hx Tobacco Use: No Smoking Status: Never smoker FmHx Family History: No diabetes Physical Exam Vitals Vital Signs Date Temp Pulse Resp B/P (MAP) Pulse Ox O2 O2 Flow FiO2 Time Delivery Rate 03/31/19 98.5 99 18 160/89 99 11:23 (112) Physical Exam Const: No acute distress Head: Atraumatic Resp: Clear to auscultation bilaterally Cardio: Regular rate and rhythm, Abd: Soft,fullness to the suprapubic region. Extended bladder Neur: Awake and alert Psych: Normal Mood and Affect Result Diagram: 03/31/19 1154 03/31/19 1154 Results 24 hrs Laboratory Tests Test 03/31/19 11:54 White Blood Count 8.3 10^3/ul Red Blood Count 5.73 10^6/ul Hemoglobin 17.6 g/dl Hematocrit 52.9 % Mean Corpuscular Volume 92.3 fl Mean Corpuscular Hemoglobin 30.7 pg Mean Corpuscular Hemoglobin Concent 33.3 g/dl Red Cell Distribution Width 14.2 % Platelet Count 202 10^3/UL Mean Platelet Volume 10.5 fl Immature Granulocytes % 0.400 % Neutrophils % 72.3 % Lymphocytes % 18.2 % Monocytes % 8.1 % Eosinophils % 0.5 % Basophils % 0.5 % Nucleated Red Blood Cells % 0.0 /100WBC Immature Granulocytes # 0.030 10^3/ul Neutrophils # 6.0 10^3/ul Lymphocytes # 1.5 10^3/ul Monocytes # 0.7 10^3/ul Eosinophils # 0.0 10^3/ul Basophils # 0.0 10^3/ul Nucleated Red Blood Cells # 0.0 10^3/ul Urine Color YELLOW Urine Clarity CLEAR Urine pH 5.0 Urine Specific [place] 1.015 Urine Ketones NEGATIVE mg/dL Urine Nitrite NEGATIVE mg/dL Urine Bilirubin NEGATIVE mg/dL Urine Urobilinogen NEGATIVE mg/dL Urine Leukocyte Esterase NEGATIVE [place]/ul Urine Hemoglobin NEGATIVE mg/dL Urine Glucose NEGATIVE mg/dL Urine Total Protein NEGATIVE mg/dl Sodium Level 144 mmol/L Potassium Level 4.9 mmol/L Chloride Level 106 mmol/L Carbon Dioxide Level 28 mmol/L Anion Gap 10 Blood Urea Nitrogen 19 mg/dl Creatinine 0.98 mg/dl Est Glomerular Filtrat Rate mL/min mL/min Glucose Level 108 mg/dl Calcium Level 9.9 mg/dl Procedures/MDM ED COURSE: The patient was stable throughout ED course. I kept the patient informed of laboratory and diagnostic imaging results throughout the ED course. DIAGNOSTIC IMAGING: Read by radiologist. PROCEDURE: Pelvic ultrasound . CLINICAL INDICATION: Urinary retention TECHNIQUE: Multiple sonographic images of the pelvis were obtained. The images were reviewed on a PACS workstation. COMPARISON: None. FINDINGS: The urinary bladder is decompressed and not seen. RPTAT: AA IMPRESSION: Urinary bladder is empty. .Luke Sarah MD, MD Date Time Electronically viewed and signed by .Luke Sarah MD, MD on 03/31/2019 13:04 PROCEDURES: Reeder catheter insertion MEDICATIONS GIVEN: [None.] MEDICAL DECISION MAKING: Patient is a 74 yr old male presenting with urinary retention x this morning. I have low suspicion for ROSIE, renal carcinoma, testicular torsion, paraphimosis, phimosis, or any other emergent conditions. Pt had normal renal function seen on labs. Patient had a reeder cath inserted which allowed him to void appropriately. He was told to follow up back to the ED in 2 days for removal. Patient agreed and all questions answered. Vital signs were reviewed. Patient is afebrile. Patient was not hypoxic. Patient was hemodynamically stable. Patient was told to follow up with primary care for further care and management. PRESCRIPTION: flomax, keflex DISCHARGE: At this time, patient is stable for discharge and outpatient management. I have instructed the patient to follow-up with their primary care physician in 1-2 days. I have discussed with the patient the possibility of needing to see a specialist for further workup and imaging studies if symptoms persist. I have instructed the patient to promptly return to the ER for any new or worsening symptoms including increased pain, fever, nausea, vomiting, weakness or LOC. The patient expressed understanding of and agreement with this plan. All questions were answered. Home care instructions were provided. Disclaimer: Inadvertent spelling and grammatical errors are likely due to EHR/dictation software use and do not reflect on the overall quality of patient care. Also, please note that the electronic time recorded on this note does not necessarily reflect the actual time of the patient encounter. Departure Diagnosis: Primary Impression: Retention of urine Additional Impression: Reeder catheter in place Condition: Fair Patient Instructions: Urinary Retention, Male Referrals: [facility] YOU HAVE RECEIVED A MEDICAL SCREENING EXAM AND THE RESULTS INDICATE THAT YOU DO NOT HAVE A CONDITION THAT REQUIRES URGENT TREATMENT IN THE EMERGENCY DEPARTMENT. FURTHER EVALUATION AND TREATMENT OF YOUR CONDITION CAN WAIT UNTIL YOU ARE SEEN IN YOUR DOCTORS OFFICE WITHIN THE NEXT 1-2 DAYS. IT IS YOUR RESPONSIBILITY TO MAKE AN APPOINTMENT FOR FOLOW-UP CARE. IF YOU HAVE A PRIMARY DOCTOR --you should call your primary doctor and schedule an appointment IF YOU DO NOT HAVE A PRIMARY DOCTOR YOU CAN CALL OUR PHYSICIAN REFERRAL HOTLINE AT IF YOU CAN NOT AFFORD TO SEE A PHYSICIAN YOU CAN CHOSE FROM THE FOLLOWING [facility] [address] [facility]. [facility] [address] [facility] [facility] [address] [facility] [facility] [address] [facility]. [facility] [address] [facility]. [facility]. [address] [facility]. [facility] YOU HAVE RECEIVED A MEDICAL SCREENING EXAM AND THE RESULTS INDICATE THAT YOU DO NOT HAVE A CONDITION THAT REQUIRES URGENT TREATMENT IN THE EMERGENCY DEPARTMENT. FURTHER EVALUATION AND TREATMENT OF YOUR CONDITION CAN WAIT UNTIL YOU ARE SEEN IN YOUR DOCTORS OFFICE WITHIN THE NEXT 1-2 DAYS. IT IS YOUR RESPONSIBILITY TO MAKE AN APPOINTMENT FOR FOLOW-UP CARE. IF YOU HAVE A PRIMARY DOCTOR --you should call your primary doctor and schedule and appointment IF YOU DO NOT HAVE A PRIMARY DOCTOR YOU CAN CALL OUR PHYSICIAN REFERRAL HOTLINE AT . IF YOU CAN NOT AFFORD TO SEE A PHYSICIAN YOU CAN CHOSE FROM THE FOLLOWING [facility] INSTITUTIONS: [facility] [address] [place] [address] [facility] [address] [place] [address] [facility] [address] [place] [address] Additional Instructions: Return back in 2 days for removal of catheter Call your primary care doctor TOMORROW for an appointment during the next 1-2 days.See the doctor sooner or return here if your condition worsens before your appointment time. POLLY HUERTA PA-C Mar 31, 2019 13:10
== END 2019-03-31 13:36 | disposition home or self-care (01) ==
LOC: FTE 11:14
DX: R33.9 Retention of urine, unspecified (principal); Z46.6 Encounter for fitting and adjustment of urinary device
CPT/HCPCS: 36415; 51701; 76856; 80048; 81003; 85025; Z7502

== ENCOUNTER 2019-04-04 09:31 | Emergency (ER) | payer OTHER ==
[~2019-04-04] VITALS: Ht 180.3 cm; Wt 63.5 kg
[2019-04-04 09:33] VITALS: Ht 180.3 cm; Wt 63.5 kg
--- NOTE | 2019-04-04 10:06 | ERD ---
ER Documentation Chief Complaint Chief Complaint URINARY CATHETER REMOVAL HPI This is a 74-year-old male patient who presents emergency room with request to have a urinary catheter removed. Patient had catheter placed 4 days ago in this ER due to urinary retention. Patient has been placed on Flomax and finasteride with instructions to follow-up with his primary care provider. Patient states his PMD is in the process of referring him to urologist. Denies hematuria, no fever, no abdominal pain, no pelvic pain, no flank pain. Urine in leg bag is clear, patient states he is changing bag every 2-3 hours. ROS All systems reviewed and are negative except as per history of present illness. Medications Home Meds Active Scripts Tamsulosin Hcl* (Flomax*) 0.4 Mg Cap.er.24h, 0.4 MG PO BID, #30 CAP Prov:POLLY HUERTA PA-C 03/31/19 Cephalexin* (Cephalexin*) 500 Mg Capsule, 500 MG PO Q12 for 7 Days, #14 CAP Prov:POLLY HUERTA PA-C 03/31/19 Finasteride* (Finasteride*) 1 Mg Tablet, 1 MG PO HS, #30 TAB Prov:DANIELA MONTERO MD 01/31/19 Tamsulosin Hcl* (Flomax*) 0.4 Mg Cap.er.24h, 0.4 MG PO HS, #30 CAP Prov:DANIELA MONTERO MD 01/31/19 Cephalexin* (Keflex*) 500 Mg Capsule, 500 MG PO QID for 7 Days, CAP Prov:DANIELA MONTERO MD 01/31/19 Sulfamethoxazole/Trimethoprim* (Bactrim Ds* Tablet) 1 Each Tablet, 1 TAB PO BID, #14 TAB Prov:DANIELA MONTERO MD 01/31/19 Tamsulosin Hcl* (Flomax*) 0.4 Mg Cap.er.24h, 0.4 MG PO QPM, #30 CAP Prov:EMMANUEL HER PA-C 12/29/18 Polyethylene Glycol* (Miralax*) 17 Gm Powd.pack, 17 GM PO DAILY, #7 Prov:EMMANUEL HER PA-C 12/29/18 Glycerin* (Glycerin (Adult)*) 1 Each Supp.rect, 1 EACH DE DAILY PRN for CONSTIPATION, #30 SUPP.RECT Prov:EMMANUEL HER PA-C 12/29/18 Docusate Sodium* (Colace*) 100 Mg Capsule, 100 MG PO TID, #30 CAP Prov:EMMANUEL HER PA-C 12/29/18 Ibuprofen* (Motrin*) 600 Mg Tab, 600 MG PO Q8 PRN for PAIN AND/OR INFLAMMATION, #30 TAB Prov:PATRICIA FARIAS MD 12/28/18 Polyethylene Glycol* (Miralax*) 17 Gm Powd.pack, 17 GM PO DAILY, #7 Prov:PATRICIA FARIAS MD 12/28/18 Naproxen* (Naprosyn*) 500 Mg Tablet, 500 MG PO BID PRN for PAIN AND/OR INFLAMMATION, #30 TAB Prov:RAE SPENCER PA-C 05/01/17 Hydrocodone/Acetaminophen ([place] 5-325 Tablet) 1 Each Tablet, 1 TAB PO Q6H PRN for PAIN, #7 TAB Prov:RAE SPENCER PA-C 05/01/17 Acetaminophen* (Tylenol*) 325 Mg Tablet, 2 TAB PO Q6 PRN for PAIN AND OR ELEVATED TEMP, #20 TAB Prov:MARY KAY HAND PA-C 01/22/17 Albuterol Sulfate* (Proair HFA*) 8.5 Gm Hfa.aer.ad, 2 PUFF INH Q4H PRN for WHEEZING AND SOB, #1 INHALER Prov:MARY KAY HAND PA-C 01/22/17 Azithromycin* (Zithromax*) 250 Mg Tablet, 250 MG PO .ARIA DIRECTED, #6 TAB TAKE 500 MG (2 TABS) THE FIRST DAY THEN 250 MG (1 TAB) DAYS 2-5 Prov:MARY KAY HAND PA-C 01/22/17 Oseltamivir Phosphate* (Tamiflu*) 75 Mg Capsule, 75 MG PO BID for 5 Days, CAP Prov:CANDIS MOY MD 11/20/16 Guaifenesin-Dextromethorphan* (Robitussin* DM) 100MG/10MG/5ML Syrup, 5 ML PO Q4H PRN for QID for 4 Days, ML 4 ounces Prov:CANDIS MOY MD 11/20/16 Acetaminophen* (Tylophen*) 500 Mg Capsule, 1 CAP PO Q6H PRN for PAIN AND OR ELEVATED TEMP, #15 CAP Prov:CANDIS MOY MD 11/20/16 Allergies Allergies: Coded Allergies: No Known Allergy (Unverified , 12/28/18) PMhx/Soc History of Surgery: Yes (HERNIA REPAIR) Anesthesia Reaction: No Hx Neurological Disorder: No Hx Respiratory Disorders: No Hx Cardiac Disorders: No Hx Psychiatric Problems: No Hx Miscellaneous Medical Probl: Yes (BPH) Hx Alcohol Use: No Hx Substance Use: No Hx Tobacco Use: No Physical Exam Vitals Vital Signs Date Temp Pulse Resp B/P (MAP) Pulse Ox O2 O2 Flow FiO2 Time Delivery Rate 04/04/19 98.5 89 20 140/65 96 09:33 (90) Physical Exam Const: No acute distress Head: Atraumatic Eyes: Normal Conjunctiva ENT: Normal External Ears, Nose and Mouth. Neck: Full range of motion. No meningismus. Resp: Clear to auscultation bilaterally Cardio: Regular rate and rhythm, no murmurs Abd: Soft, non tender, non distended. Normal bowel sounds Skin: No petechiae or rashes Back: No midline or flank tenderness Ext: No cyanosis, or edema Neur: Awake and alert Psych: Normal Mood and Affect Procedures/MDM PROCEDURES/MDM PROCEDURES: Catheter removal LAB INTERPRETATION: Review of prior urinalysis negative for positive urine cultures or infection MDM: This is a 74-year-old male patient who presents the emergency room for removal of Fields catheter after having retention 4 days ago with catheter placed. This is the third visit for the same as patient was seen in this emergency room on December 28, December 29, and again on March 31. Long discussion had with patient regarding need for follow-up with urologist and PMD. Instructed patient to continue with his prescribed finasteride and Flomax, as well as red flag signs and symptoms to return to the emergency room. Patient states he is aware that he has had prior evaluation of prostate and has been told that he has a very large prostate and requires urology for follow-up. Review of prior urinalysis does not indicate untreated infection, low suspicion for UTI at this time, patient does not have any back or flank pain and no hematuria, low suspicion for obstructing stone. Patient is without pelvic or abdominal pain, urine is flowing into bag freely without current retention, low suspicion for urethral stricture or retention after removal of catheter. Patient denies any recent weight loss, unusual bruising, or other signs that would indicate malignancy or metastasis, however patient verbalizes understanding that he may have undetected prostate cancer that needs to be evaluated by urologist and is not a diagnosis to be made in the emergency department and therefore repeated treatment in the ER setting for recurring retention is not appropriate. Patient verbalizes understanding that he needs referral with urologist to get appropriate diagnosis and treatment for his condition. DISPOSITION and PLAN: RX: None patient has prior prescriptions The patient has been discharge home to follow-up with community physician. Departure Diagnosis: Primary Impression: Urinary retention Additional Impression: BPH (benign prostatic hyperplasia) Lower urinary tract symptom presence: symptoms present Lower urinary tract symptom detail: urinary retention Qualified Codes: N40.1 - Benign prostatic hyperplasia with lower urinary tract symptoms; R33.8 - Other retention of urine Condition: Stable Patient Instructions: Urinary Retention, Male Referrals: NARESH NARVAEZ MD Your primary care doctor Additional Instructions: Thank you very much for allowing us to participate in your care. Your health and safety is our top priority at [facility]. Call your primary care doctor TOMORROW for an appointment during the next 2-4 days and bring all the information and medications prescribed. Have prescriptions filled and follow precisely the directions on the label. If the symptoms get worse and your provider is unavailable, return to the Emergency Department immediately. RETURN IMMEDIATELY FOR FEVER, PAIN, BLOOD IN URINE, DIFFICULTY WITH URINATION CONTINUE TO TAKE THE FLOMAX AND FINASTERIDE SEE YOUR PRIMARY DOCTOR IMMEDIATELY FOR REFERRAL TO UROLOGY, REFERRAL ALSO PROVIDED TODAY KATELYNN GUILLEN NP Apr 04, 2019 10:06
== END 2019-04-04 10:37 | disposition home or self-care (01) ==
LOC: FTE 09:31
DX: N40.1 Benign prostatic hyperplasia with lower urinary tract symptoms (principal); R33.8 Other retention of urine
CPT/HCPCS: 51702; Z7502

== ENCOUNTER 2019-05-24 11:58 | Emergency (ER) | payer OTHER ==
[~2019-05-24] VITALS: Ht 177.8 cm; Wt 76.2 kg
[~2019-05-24 11:58] MED LIST changes: +CIPR500T4 PO; +FINA5TAB PO; +MUPI22OI2 TOP
[2019-05-24 12:20] VITALS: BP 142/95; PULSE 94; RESP 18; Ht 177.8 cm; Wt 76.2 kg
== END 2019-05-24 13:25 | disposition home or self-care (01) ==
LOC: E/R 11:58
DX: S20.312A Abrasion of left front wall of thorax, initial encounter (principal); N40.0 Benign prostatic hyperplasia without lower urinary tract symptoms; X58.XXXA Exposure to other specified factors, initial encounter; Y92.9 Unspecified place or not applicable; Z76.0 Encounter for issue of repeat prescription
CPT/HCPCS: 99281